=== PATIENT | male | born 2000 | race Caucasian/White ===

== ENCOUNTER 2024-04-02 08:01 | Outpatient (OUT) | payer BC, SELFPAY ==
--- NOTE | 2024-04-02 08:10 | ECG_ITS ---
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
[2024-04-02 08:54] LABS: Basophils Absolute Auto 0.1 10^3/uL (0.0-0.1); Basophils Percent Auto 1.4 % (0.2-2.0); Eosinophils Absolute Auto 0.2 10^3/uL (0.0-0.7); Eosinophils Percent Auto 2.7 % (0.9-7.0); Hematocrit 42.2 % (42.0-54.0); Hemoglobin 14.4 g/dL (14.0-18.0); Lymphocytes Absolute Auto 2.1 10^3/uL (1.2-3.8); Lymphocytes Percent Auto 31.9 % (20.5-60.0); Mean Corpuscular HGB Conc 34.1 g/dL (29.9-35.2); Mean Corpuscular Hemoglobin 28.6 pg (25.9-34.0); Mean Corpuscular Volume 83.7 fL (80.0-94.0); Mean Platelet Volume 9.5 fL (9.5-13.5); Monocytes Absolute Auto 0.7 10^3/uL (0.3-0.8); Monocytes Percent Auto 10.3 % (1.7-12.0); Neutrophils Absolute Auto 3.6 10^3/uL (1.4-6.5); Neutrophils Percent Auto 53.7 % (43.0-75.0); Platelet Count 329 10^3/uL (150-450); Red Blood Count 5.04 10^6/uL (4.70-6.10); Red Cell Distribution Width 13.1 % (11.0-15.0); White Blood Count 6.6 10^3/uL (4.0-11.0)
[2024-04-02 09:12] LABS: INR 1.14; Prothrombin Time 11.9 sec (9.0-11.6)
== END 2024-04-02 08:02 | disposition home or self-care (01) ==
LOC: PST 08:05
PROVIDERS: PCP Family Medicine; Visit Provider Otolaryngology
DX: Z01.810 Encounter for preprocedural cardiovascular examination (principal); Z01.812 Encounter for preprocedural laboratory examination; R04.0 Epistaxis
CPT/HCPCS: 85025; 85610; 85730; 93005

== ENCOUNTER 2024-04-13 08:41 | Day surgery (SDC) | payer BC, SELFPAY ==
[2024-04-02 08:38] VITALS: BP 128/86; PULSE 79; TEMP 36.5; O2SAT 96; BMI 23.7
[2024-04-13] VITALS (13 sets, daily range): BP systolic 94–146; BP diastolic 61–79; PULSE 65–104; TEMP 36.4–36.6; O2SAT 99–100
--- OUTSIDE RECORDS SUMMARY | 2024-04-13 08:55 | XMS_ITS | CCD ---
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 Name Role Phone MICHELLE, DR LIBRADO Markham Admitting Unavailable MICHELLE, DR LIBRADO Markham Attending Unavailable MICHELLE, DR LIBRADO Markham Consulting Unavailable MICHELLE, DR LIBRADO Markham Admitting Unavailable MICHELLE, DR LIBRADO Markham Attending Unavailable MICHELLE, DR LIBRADO Markham Admitting Unavailable CHARMAINE, DR MIGUEL Arellano Consulting Unavailable MICHELLE, DR LIBRADO Markham Attending Unavailable MICHELLE, DR LIBRADO Markham Consulting Unavailable JAMIE QUINN Primary Care Unavailable TUYET, JAMIE Referring Unavailable DENA SALAZAR Admitting Unavailable DENA SALAZAR Attending Unavailable Jamie Quinn DO Primary Care Provider RICKY STILES Attending Unavailable JAMIE QUINN Referring Unavailable TUYET, JAMIE Beck Primary Care Unavailable RICKY STILES Attending Unavailable TUYET, JAMIE Beck Referring Unavailable TUYET, JAMIE Beck Primary Care Unavailable AIDAN BECK Attending Unavailable Problems Active Problems Problem Classification Problem Date Documented Date Episodic/Chronic Anxiety disorders (1 source) Generalized anxiety disorder; Translations: [Generalized anxiety disorder] Onset: 11-04-2018 11-04-2018 Chronic Attention-deficit, conduct, and disruptive behavior disorders (1 source) Attention deficit hyperactivity disorder, combined type; Translations: [Attention-deficit hyperactivity disorder, combined type] Onset: 07-15-2017 07-15-2017 Chronic Attention-deficit, conduct, and disruptive behavior disorders (1 source) Oppositional defiant disorder; Translations: [Oppositional defiant disorder] Onset: 07-15-2017 07-15-2017 Chronic Cardiac dysrhythmias (1 source) Postural orthostatic tachycardia syndrome ; Translations: [POTS (postural orthostatic tachycardia syndrome)] Onset: 08-12-2022 08-12-2022 Chronic Mycoses (1 source) Tinea corporis; Translations: [Tinea corporis] Onset: 03-17-2024 Episodic Nonspecific chest pain (4 sources) Chest pain, unspecified; Translations: [CHEST PAIN UNSPECIFIED] Onset: 01-11-2022 Episodic Other ear and sense organ disorders (1 source) Bilateral hearing loss; Translations: [Impacted cerumen, bilateral] 01-14-2024 Episodic Other upper respiratory disease (1 source) Epistaxis; Translations: [Epistaxis] Onset: 03-17-2024 Episodic Residual codes; unclassified (1 source) Insomnia; Translations: [Other insomnia] Onset: 11-04-2018 11-04-2018 Chronic Unclassified (1 source) Low back pain, unspecified; Translations: [Low back pain, unspecified] Onset: 03-17-2024 Unclassified (1 source) Nose Bleed Onset: 03-17-2024 Unclassified (1 source) Ear Fullness Onset: 01-14-2024 Past or Other Problems Problem Classification Problem Date Documented Da te Episodic/Chronic Mood disorders (1 source) Mood disorders Onset: 01-14-2024 01-14-2024 Results Test Name Value Interpretation Reference Range Facility $ Ear cerumen removalon 12-19 RADHA Carcamo 01/14/2024 4:20 PM $ Ear cerumen removal Date/Time: 01/14/2024 4:13 PM Performed by: RADHA Carcamo Authorized by: RADHA Carcamo Local anesthetic: None Location details: Bilateral ears Procedure type: irrigation only Patient sedated: No Patient tolerance: Patient tolerated the procedure well with no immediate complications Incomplete removal of wax to right TM, most of it was removed but hearing was not restored to right. He is to use Debrox X 1 wk and if hearing is not restored he is to return to office for another irrigation of right. MANUALLY TRANSCRIBED RESULTS Section 101 System CATECHOLAMINES PLASMA [id number] n 04-26-2022 DOPAMINE <20 Normal 0-20 [facility] EPINEPHERINE 65 pg/mL Normal 10-200 [facility] [place] INTERPRETATION See Note Normal [facility] Comment on above: Result Comment: INTE RPRETIVE INFORMATION: Catecholamines Panel, Plasma Small increases in catecholamines (less than 2 times the upper reference limit) usually are the result of physiological stimuli, drugs, or improper specimen collection. Significant elevation of one or more catecholamines (2 or more times the upper reference limit) is associated with an increased probability of a neuroendocrine tumor. Measurement of plasma or urine fractionated metanephrines provides better diagnostic sensitivity than measurement of catecholamines. Higher catecholamine concentrations are observed in specimens collected from upright or standing adults. Epinephrine may be increased by approximately 20 percent; norepinephrine up to 700 pg/mL; dopamine, unchanged. Performed By: [facility] [address] [place] [address] Incident Commander: Echo Antoine MD NOR-EPINEPHERINE 421 pg/mL Normal 80-520 [facility] DOPAMINE <20 Normal 0-20 [facility] EPINEPHERINE 29 pg/mL Normal 10-200 [facility] [place] INTERPRETATION See Note Normal [facility] Comment on above: Result Comment: INTE RPRETIVE INFORMATION: Catecholamines Panel, Plasma Small increases in catecholamines (less than 2 times the upper reference limit) usually are the result of physiological stimuli, drugs, or improper specimen collection. Significant elevation of one or more catecholamines (2 or more times the upper reference limit) is associated with an increased probability of a neuroendocrine tumor. Measurement of plasma or urine fractionated metanephrines provides better diagnostic sensitivity than measurement of catecholamines. Higher catecholamine concentrations are observed in specimens collected from upright or standing adults. Epinephrine may be increased by approximately 20 percent; norepinephrine up to 700 pg/mL; dopamine, unchanged. Performed By: [facility] [address] [place] [address] Incident Commander: Echo Antoine MD NOR-EPINEPHERINE 206 pg/mL Normal 80-520 [facility] CORTISOLon 04-26-2022 CORTISOL 10.8 mcg/dL Normal [facility] Comment on above: Result Comment: Refe rence Range: AM 6.0-23.0 mcg/dL PM 0.0-9.0 mcg/dL Performed By: #### 3 0209, [id number] #### [facility] [address] METANEPHRINES, PLASMA [id number] n 06-10-[address] See Note Normal [facility] Comment on above: Result Comment: INTE RPRETIVE INFORMATION: Metanephrines, Plasma (Free) This test is useful in the detection of pheochromocytoma, a rare neuroendocrine tumor. The majority of patients with pheochromocytoma have a plasma normetanephrine concentration in excess of 2.2 nmol/L and/or a metanephrine concentration in excess of 1.1 nmol/L. Increased concentrations of these analytes serve as confirmation for diagnosis. Patients with essential hypertension and plasma concentrations of normetanephrine below 0.9 nmol/L and a metanephrine concentration below 0.5 nmol/L, can be excluded from further testing. If clinical suspicion remains, repeat testing or testing for metanephrines in a 24-hr. urine specimen should be considered. This test was developed and its performance characteristics determined by [facility]. It has not been cleared or approved by the [place] Food and Drug Administration. This test was performed in a CLIA certified laboratory and is intended for clinical purposes. Performed By: [facility] [address] [place] [address] Incident Commander: Echo Antoine MD METANEPHRINE PLASMA 0.35 nmol/L Normal 0.00-0.49 [facility] NORMETANEPHRINE PLASMA 0.55 nmol/L Normal 0.00-0.89 [facility] INTERP METANEPH PL See Note Normal [facility] Comment on above: Result Comment: INTE RPRETIVE INFORMATION: Metanephrines, Plasma (Free) This test is useful in the detection of pheochromocytoma, a rare neuroendocrine tumor. The majority of patients with pheochromocytoma have a plasma normetanephrine concentration in excess of 2.2 nmol/L and/or a metanephrine concentration in excess of 1.1 nmol/L. Increased concentrations of these analytes serve as confirmation for diagnosis. Patients with essential hypertension and plasma concentrations of normetanephrine below 0.9 nmol/L and a metanephrine concentration below 0.5 nmol/L, can be excluded from further testing. If clinical suspicion remains, repeat testing or testing for metanephrines in a 24-hr. urine specimen should be considered. This test was developed and its performance characteristics determined by [facility]. It has not been cleared or approved by the [place] Food and Drug Administration. This test was performed in a CLIA certified laboratory and is intended for clinical purposes. Performed By: [facility] [address] [place] [address] Incident Commander: Echo Antoine MD METANEPHRINE PLASMA 0.22 nmol/L Normal 0.00-0.49 [facility] NORMETANEPHRINE PLASMA 0.49 nmol/L Normal 0.00-0.89 [facility] TSH3on 04-26-2022 TSH 3RD GENERATION 1.15 uIU/mL Normal 0.34-5.60 [facility] Comment on above: Performed By: #### 3 0209, [id number] #### [facility] [address] BASIC METABOLIC PANELon 12-19 BUN/CREATININE RATIO NOT APPLICABLE Normal - [facility] Comment on above: Order Comment: FASTI NG:YES FASTING: YES Performed By: #### 1 0165 #### [facility] [address], [address] [place] [address] Electrical Machinist: Derrell Infante MD Calcium [Mass/Vol] 10.0 mg/dL Normal 8.9-10.4 [facility] Comment on above: Order Comment: FASTI NG:YES FASTING: YES Performed By: #### 1 0165 #### [facility] [address], [address] [place] [address] Electrical Machinist: Derrell Infante MD Chloride [Moles/Vol] 105 mmol/L Normal 98-110 [facility] Comment on above: Order Comment: FASTI NG:YES FASTING: YES Performed By: #### 1 0165 #### [facility] [address], [address] [place] [address] Electrical Machinist: Derrell Infante MD CO2 [Moles/Vol] 31 mmol/L Normal 20-32 [facility] Comment on above: Order Comment: FASTI NG:YES FASTING: YES Performed By: #### 1 0165 #### [facility] [place] [address] Electrical Machinist: Derrell Infante MD Creatinine [Mass/Vol] 1.03 mg/dL Normal 0.60-1.26 [facility] Comment on above: Order Comment: FASTI NG:YES FASTING: YES Performed By: #### 1 0165 #### [facility] [place] [address] Electrical Machinist: Derrell Infante MD eGFR NON-AFR. MONTSERRATIAN 105 mL/min/1.73m2 Normal > OR = 60 [facility] Comment on above: Order Comment: FASTI NG:YES FASTING: YES Performed By: #### 1 0165 #### [facility] [place] [address] Electrical Machinist: Derrell Infante MD GFR/1.73 sq M.predicted among blacks MDRD (S/P/Bld) [Vol rate/Area] 121 mL/min/{1.73_m2} Normal > OR = 60 [facility] Comment on above: Order Comment: FASTI NG:YES FASTING: YES Performed By: #### 1 0165 #### [facility] [place] [address] Electrical Machinist: Derrell Infante MD Glucose [Mass/Vol] 95 mg/dL Normal 65-99 [facility] Comment on above: Order Comment: FASTI NG:YES FASTING: YES Result Comment: Fasting reference interval Performed By: #### 1 0165 #### [facility] [place] [address] Electrical Machinist: Derrell Infante MD Potassium [Moles/Vol] 4.2 mmol/L Normal 3.8-5.1 [facility] Comment on above: Order Comment: FASTI NG:YES FASTING: YES Performed By: #### 1 0165 #### [facility] [place] [address] Electrical Machinist: Derrell Infante MD Sodium [Moles/Vol] 141 mmol/L Normal 135-146 [facility] Comment on above: Order Comment: FASTI NG:YES FASTING: YES Performed By: #### 1 0165 #### [facility] [address], [address] [place] [address] Electrical Machinist: Derrell Infante MD Urea nitrogen [Mass/Vol] 16 mg/dL Normal 7-20 [facility] Comment on above: Order Comment: FASTI NG:YES FASTING: YES Performed By: #### 1 0165 #### [facility] [address], [address] [place] [address] Electrical Machinist: Derrell Infante MD ECHOCARDIO M/2D COMPLETEon 0 01-11-2022 ECHOCARDIO M/2D COMPLETE Patient: MICHAEL ATKINS Exam Date: 01/11/2022 : 2000 Gender:M Ordering : DR LIBRADO MARTINEZ Admission #: [id number] Family : Order #: [id number] CLICK HERE TO VIEW EXAM ECHOCARDIOGRAM REPORT PROCEDURE: CARDIO PULMONARY ECHOCARDIO M/2D COMP INDICATIONS: Chest pain COMPARISON: None. DESCRIPTION: COMPLETE ECHOCARDIOGRAM Real-time transthoracic echocardiography with 2D, M-mode, spectral and color flow Doppler performed. QUALITY: Technical quality was good. LEFT VENTRICLE: Normal chamber size. Normal left ventricular wall thickness. No regional wall motion abnormalities. LV EF: Normal left ventricular ejection fraction, (>55%). DIASTOLIC: Normal diastolic function. ATRIAL SEPTUM: Visually appears intact. LEFT ATRIUM: Normal chamber size. RIGHT ATRIUM: Normal chamber size. A prominent Eustachian valve (normal variant) is seen. RIGHT VENTRICLE: Normal chamber size. Normal right ventricular systolic function. TRICUSPID VALVE: Normal mobility and thickness. No stenosis with trivial regurgitation. No evidence of pulmonary hypertension. MITRAL VALVE: Normal mobility and thickness. No evidence of mitral valve stenosis. There is no mitral annular calcification. Trivial mitral regurgitation. AORTIC VALVE: Normal trileaflet appearance. No visible sclerosis. Normal leaflet mobility. No evidence of aortic valve stenosis. No aortic regurgitation. AORTIC ROOT: Normal diameter and appearance. Ascending aorta and aortic arch are normal in size. PULMONIC VALVE: Normal thickness and mobility. No stenosis. No regurgitation. PERICARDIUM: No evidence of pericardial effusion. IVC: Collapses with inspirations. IVC is normal in size. CONCLUSION: Global left ventricular systolic function is normal; visually estimated ejection fraction is 55 to 60%. No significant wall motion abnormalities. Normal diastolic function. The right ventricle is normal in size and systolic function. No significant valvular abnormalities. Adult Echocardiography Procedure Report Left Ventricle LVEDD (3.7 - 5.6 cm): 4.40 cm LVESD (2.2 - 4.0 cm): 3.18 cm LVIVS thickness (0.6 - 1.2 cm): 9.15 mm LVPW thickness (0.5 - 1.0 cm): 8.90 mm e': 14.30 cm/s E - e': 3.90 LVOT Area (cm2): 4.15 cm2 LVOT Diameter 2.30 cm Left Atrium LA Volume Index (2D A2C): 23.60 ml/m2 Left Atrium Systolic Dimension: 2.50 cm Left Atrium Systolic Area(A2C): 15.90 cm2 Left Atrium Systolic Area(A4C): 21.40 cm2 Left Atrium Systolic Volume(A2C): 25249 mm3 Left Atrium Systolic Volume(A4C): 81678 mm3 Mitral Valve MV E to A Ratio: 1.60 Mitral Valve A-Wave Peak Velocity: 35.50 cm/s Mitral Valve E-Wave Peak Velocity: 56.30 cm/s Deceleration Time: 298 ms Right Ventricle Aorta AO Root Diam: 3.00 cm Aortic Valve AoV Area (Peak Justin): 3.86 cm2 Peak Velocity(Antegrade Flow): 115.00 cm/s Peak Gradient(Antegrade Flow): 5 mm[Hg] Tricuspid Valve Pulmonic Valve Peak Velocity: 108.00 cm/s Peak Gradient: 5 mm[Hg] Right Atrium Dictated by: Anup Ramírez M.D. on 01/11/2022 at 16:11 Approved by: Anup Ramírez M.D. on 01/11/2022 at 16:14 Normal [facility] CBC (INCLUDES DIFF/PLT)on Basophils (Bld) [#/Vol] 0.068 10*3/uL Normal 0-200 [facility] Comment on above: Performed By: #### 8 09, 6890, 66178 #### [facility] [address], [address] [place] [id number] Electrical Machinist: Derrell Infante MD Basophils/100 WBC (Bld) 0.9 % Normal [facility] Comment on above: Performed By: #### 8 , 63, 81153 #### [facility] [place] [address] Electrical Machinist: Derrell Infante MD Eosinophils (Bld) [#/Vol] 0.19 10*3/uL Normal 15-500 [facility] Comment on above: Performed By: #### 8 , 63, 76517 #### [facility] [place] [address] Electrical Machinist: Derrell Infante MD Eosinophils/100 WBC (Bld) 2.5 % Normal [facility] Comment on above: Performed By: #### 8 , 63, 28414 #### [facility] [place] [address] Electrical Machinist: Derrlel Infante MD Erythrocyte distribution width (RBC) [Ratio] 13.8 % Normal 11.0-15.0 [facility] Comment on above: Performed By: #### 8 , 63, 34008 #### [facility] [place] [address] Electrical Machinist: Derrell Infante MD Hematocrit (Bld) [Volume fraction] 42.6 % Normal 38.5-50.0 [facility] Comment on above: Performed By: #### 8 , 63, 53863 #### [facility] [place] [address] Electrical Machinist: Derrell Infante MD Hemoglobin (Bld) [Mass/Vol] 14.4 g/dL Normal 13.2-17.1 [facility] Comment on above: Performed By: #### 8 , 63, 12039 #### [facility] [place] [address] Electrical Machinist: Derrell Infante MD Lymphocytes (Bld) [#/Vol] 2.531 10*3/uL Normal 850-3900 [facility] Comment on above: Performed By: #### 8 , 63, 78913 #### [facility] [place] [address] Electrical Machinist: Derrell Infante MD Lymphocytes/100 WBC (Bld) 33.3 % Normal [facility] Comment on above: Performed By: #### 8 , 63, 10546 #### [facility] [place] [address] Electrical Machinist: Derrell Infante MD MCH (RBC) [Entitic mass] 29.1 pg Normal 27.0-33.0 [facility] Comment on above: Performed By: #### 8 , 63, 84618 #### [facility] [place] [address] Electrical Machinist: Derrell Infante MD MCHC (RBC) [Mass/Vol] 33.8 g/dL Normal 32.0-36.0 [facility] Comment on above: Performed By: #### 8 , 63, 74465 #### [facility] [place] [address] Electrical Machinist: Derrell Infante MD MCV (RBC) [Entitic vol] 86.1 fL Normal 80.0-100.0 [facility] Comment on above: Performed By: #### 8 , 63, 65843 #### [facility] [place] [address] Electrical Machinist: Derrell Infante MD Monocytes (Bld) [#/Vol] 1.018 10*3/uL High 200-950 [facility] Comment on above: Performed By: #### 8 , 6399, 21528 #### [facility] [place] [address] Electrical Machinist: Derrell Infante MD Monocytes/100 WBC (Bld) 13.4 % Normal [facility] Comment on above: Performed By: #### 8 , 63, 20433 #### [facility] of [address], [address] [place] [address] Electrical Machinist: Derrell Infante MD Neutrophils (Bld) [#/Vol] 3.792 10*3/uL Normal 1462-9743 [facility] Comment on above: Performed By: #### 8 09, 6399, 56814 #### [facility] of [address], [address] [place] [address] Electrical Machinist: Derrell Infante MD Neutrophils/100 WBC (Bld) 49.9 % Normal [facility] Comment on above: Performed By: #### 8 09, 6399, 33743 #### [facility] [place] [address] Electrical Machinist: Derrell Infante MD Platelet mean volume (Bld) [Entitic vol] 10.5 fL Normal 7.5-12.5 [facility] Comment on above: Performed By: #### 8 , 63, 88243 #### [facility] of [address], [address] [place] [address] Electrical Machinist: Derrell Infante MD Platelets (Bld) [#/Vol] 287 10*3/uL Normal 140-400 [facility] Comment on above: Performed By: #### 8 09, 6399, 34685 #### [facility] [place] [address] Electrical Machinist: Derrell Infante MD RBC (Bld) [#/Vol] 4.95 10*6/uL Normal 4.20-5.80 [facility] Comment on above: Performed By: #### 8 09, 6399, 55425 #### [facility] of [address], [address] [place] [address] Electrical Machinist: Derrell Infante MD WBC (Bld) [#/Vol] 7.6 10*3/uL Normal 3.8-10.8 [facility] Comment on above: Performed By: #### 8 09, 6399, 45610 #### [facility] of [address], [address] [place] [address] Electrical Machinist: Derrell Infante MD COMPREHENSIVE METABOLIC PANE [facility] 12-29-2021 Albumin [Mass/Vol] 4.9 g/dL Normal 3.6-5.1 [facility] Comment on above: Order Comment: FASTI NG:YES FASTING: YES Performed By: #### 8 09, 6399, 25280 #### [facility] [address], [address] [place] [address] Electrical Machinist: Derrell Infante MD Albumin/Globulin [Mass ratio] 2.7 {ratio} High 1.0-2.5 [facility] Comment on above: Order Comment: FASTI NG:YES FASTING: YES Performed By: #### 8 09, 6399, 04709 #### [facility] [place] [address] Electrical Machinist: Derrell Infante MD ALP [Catalytic activity/Vol] 44 U/L Low 46-169 [facility] Comment on above: Order Comment: FASTI NG:YES FASTING: YES Performed By: #### 8 09, 6399, 27836 #### [facility] [place] [address] Electrical Machinist: Derrell Infante MD ALT [Catalytic activity/Vol] 10 U/L Normal 8-46 [facility] Comment on above: Order Comment: FASTI NG:YES FASTING: YES Performed By: #### 8 09, 6399, 85573 #### [facility] [place] [address] Electrical Machinist: Derrell Infante MD AST [Catalytic activity/Vol] 14 U/L Normal 12-32 [facility] Comment on above: Order Comment: FASTI NG:YES FASTING: YES Performed By: #### 8 09, 6399, 03403 #### [facility] [place] [address] Electrical Machinist: Derrell Infante MD Bilirubin [Mass/Vol] 0.5 mg/dL Normal 0.2-1.1 [facility] Comment on above: Order Comment: FASTI NG:YES FASTING: YES Performed By: #### 8 09, 6399, 70186 #### [facility] [place] [address] Electrical Machinist: Derrell Infante MD BUN/CREATININE RATIO NOT APPLICABLE Normal 6-22 [facility] Comment on above: Order Comment: FASTI NG:YES FASTING: YES Performed By: #### 8 09, 6399, 78758 #### [facility] [place] [address] Electrical Machinist: Derrell Infante MD Calcium [Mass/Vol] 9.9 mg/dL Normal 8.9-10.4 [facility] Comment on above: Order Comment: FASTI NG:YES FASTING: YES Performed By: #### 8 09, 6399, 42269 #### [facility] [place] [address] Electrical Machinist: Derrell Infante MD Chloride [Moles/Vol] 106 mmol/L Normal 98-110 [facility] Comment on above: Order Comment: FASTI NG:YES FASTING: YES Performed By: #### 8 09, 6399, 57905 #### [facility] [place] [address] Electrical Machinist: Derrell Infante MD CO2 [Moles/Vol] 27 mmol/L Normal 20-32 [facility] Comment on above: Order Comment: FASTI NG:YES FASTING: YES Performed By: #### 8 , 6399, 32012 #### [facility] [place] [address] Electrical Machinist: Derrell Infante MD Creatinine [Mass/Vol] 0.89 mg/dL Normal 0.60-1.26 [facility] Comment on above: Order Comment: FASTI NG:YES FASTING: YES Performed By: #### 8 09, 6399, 32289 #### [facility] [place] [address] Electrical Machinist: Derrell Infante MD eGFR NON-AFR. MONTSERRATIAN 124 mL/min/1.73m2 Normal > OR = 60 [facility] Comment on above: Order Comment: FASTI NG:YES FASTING: YES Performed By: #### 8 , 63, 91150 #### [facility] [address], [address] [place] [address] Electrical Machinist: Derrell Infante MD GFR/1.73 sq M.predicted among blacks MDRD (S/P/Bld) [Vol rate/Area] 144 mL/min/{1.73_m2} Normal > OR = 60 [facility] Comment on above: Order Comment: FASTI NG:YES FASTING: YES Performed By: #### 8 , 63, 56438 #### [facility] [address], [address] [place] [address] Electrical Machinist: Derrell Infante MD Globulin (S) [Mass/Vol] 1.8 g/dL Low 2.1-3.5 [facility] Comment on above: Order Comment: FASTI NG:YES FASTING: YES Performed By: #### 8 , 63, 42090 #### [facility] [address], [address] [place] [address] Electrical Machinist: Derrell Infante MD Glucose [Mass/Vol] 104 mg/dL High 65-99 [facility] Comment on above: Order Comment: FASTI NG:YES FASTING: YES Result Comment: Fasting reference interval For someone without known diabetes, a glucose value between 100 and 125 mg/dL is consistent with prediabetes and should be confirmed with a follow-up test. Performed By: #### 8 , 63, 81890 #### [facility] [address], [address] [place] [address] Electrical Machinist: Derrell Infante MD Potassium [Moles/Vol] 3.7 mmol/L Low 3.8-5.1 [facility] Comment on above: Order Comment: FASTI NG:YES FASTING: YES Performed By: #### 8 , 63, 62344 #### [facility] [address], [address] [place] [address] Electrical Machinist: Derrell Infante MD Protein [Mass/Vol] 6.7 g/dL Normal 6.3-8.2 [facility] Comment on above: Order Comment: FASTI NG:YES FASTING: YES Performed By: #### 8 09, [id number], [id number] #### [facility] [address], [address] [place] [address] Electrical Machinist: Derrell Infante MD Sodium [Moles/Vol] 141 mmol/L Normal 135-146 [facility] Comment on above: Order Comment: FASTI NG:YES FASTING: YES Performed By: #### 8 09, [id number], [id number] #### [facility] [place] [address] Electrical Machinist: Derrell Infante MD Urea nitrogen [Mass/Vol] 9 mg/dL Normal 7-20 [facility] Comment on above: Order Comment: FASTI NG:YES FASTING: YES Performed By: #### 8 09, [id number], [id number] #### [facility] [place] [address] Electrical Machinist: Derrell Infante MD SED RATE BY MODIFIED WESTERG RENon 12-29-2021 SED RATE BY MODIFIED WESTERGREN 2 mm/h Normal < OR = 15 [facility] Comment on above: Performed By: #### 8 09, [id number], [id number] #### [facility] [place] [address] Electrical Machinist: Derrell Infante MD XR CHEST 2 Von 12-28-2021 XR CHEST 2 V EXAMINATION: XR CHES T 2 V HISTORY: Chest pain COMPARISON: No relevant comparison available. TECHNIQUE: PA and lateral FINDINGS: LUNGS: No significant pulmonary parenchymal abnormalities. VASCULATURE: No increased pulmonary vasculature. PLEURA: No pneumothorax, effusion, or pleural thickening. CARDIAC: No cardiomegaly or cardiac silhouette abnormality. MEDIASTINUM: No visible mass or adenopathy. BONES: No fracture or visible bone lesion. OTHER: Negative. IMPRESSION: Normal examination. Electronically authenticated by: MIGUEL MONTANO Date: 2021-12-28 10:41 Normal [facility] Vital Signs Date Time Vital Sign Value Performing Clinician Facility 01-14-2024 15:11-0500 Body height 190.5 cm Ricky Stiles MEDICAL UNDERWRITER-LICENSED WEIGHER Work Phone: [facility] 01-14-2024 15:11-0500 Body mass index (BMI) [Ratio] 26.6 kg/m2 Ricky Stiles MEDICAL UNDERWRITER-LICENSED WEIGHER Work Phone: [facility] 01-14-2024 15:11-0500 Body temperature 99.39 [degF] Ricky Stiles MEDICAL UNDERWRITER-LICENSED WEIGHER Work Phone: [facility] 01-14-2024 15:11-0500 [facility] MED[facility] UNDERWRITER-LICENSED WEIGHER Work Phone: [facility] 01-14-2024 15:11-0500 Diastolic blood pressure 70 mm[Hg] [facility] MEDICAL UNDERWRITER-LICENSED WEIGHER Work Phone: [facility] 01-14-2024 15:11-0500 Heart rate 75 /min Rickyaye Stiles MEDICAL UNDERWRITER-LICENSED WEIGHER Work Phone: [facility] 01-14-2024 15:11-0500 SaO2% (BldA) [Mass fraction] 99 % Ricky Stiles MEDICAL UNDERWRITER-LICENSED WEIGHER Work Phone: [facility] 01-14-2024 15:11-0500 Systolic blood pressure 110 mm[Hg] [facility] MEDICAL UNDERWRITER-LICENSED WEIGHER Work Phone: [facility] Encounters Encounter Date Encounter Type Care Provider Facility Start: 04-01-2024 End: 04-01-2024 ambulatory AIDAN BECK Not Available Start: 03-17-2024 End: 03-17-2024 ambulatory [facility] Start: 01-14-2024 End: 01-14-2024 ambulatory [facility] Start: 01-14-2024 End: 01-14-2024 Office outpatient visit 15 minutes Rickyaye Stiles MEDICAL UNDERWRITER-LICENSED WEIGHER Work Phone: [facility] Comment on above: Hearing loss due to cerumen impaction, bilateral (Primary Dx) Start: 05-22-2022 End: 05-23-2022 ambulatory JAMIE TERRELLHERIBERTOPANKAJ Facility:[facility] Start: 01-11-2022 End: 01-12-[address] LIBRADO MARTINEZ Facility: Start: 12-28-2021 End: 12-29-[address] LIBRADO MARTINEZ Facility:[facility] Start: 07-03-[address] LIBRADO MARTINEZ Facility :[facility] Procedures Date Procedure Procedure Detail Performing Clinician Start: 01-14-2024 Removal impacted cer umen irrigation/lvg unilat Ricky Stiles MEDICAL UNDERWRITER-LICENSED WEIGHER Work Phone: Start: 01-14-2024 Adult depression screening assessment Ricky Stiles MEDICAL UNDERWRITER-LICENSED WEIGHER Work Phone: Plan of Treatment Date Care Activity Detail Author Start: 06-19-2025 DTaP,Tdap and Td Vaccines (7 - Td or Tdap) DTaP,Tdap and Td Vaccines (7 - Td or Tdap) [facility] Start: 01-14-2025 Adult BMI Screening Adult BMI Screen ing [facility] Start: 01-14-2025 Depression Screening Depression Scre ening [facility] Start: 01-14-2025 Tobacco Screening Tobacco Screening [facility] Start: 07-18-2023 Influenza vaccination Influenza Vacc ine [facility] Start: 2020 Adult BMI Follow Up Plan Adult BMI Follow Up Plan [facility] Payers Date Payer Category Payer Unknown [employer] P[employer]/TRUST [id number] 2021-Present [phone] [address] [place] [address] [id number] 2002 Unknown [id number] 2002 Unknown [id number] 2002 Unknown [id number] 2002 Unknown [id number] 2002 Unknown [id number] 1975 Unknown [id number] 1975 Unknown [id number] 1959 Self-pay 1959 Unknown [id number] Social History Date Type Detail Facility Start: 08-12-2022 Tobacco smoking stat [facility] Never smoked tobacco [facility] Start: 08-12-2022 Tobacco use and exposure Smokeless tobacco non-user [facility] Start: 01-14-2024 Alcohol intake Lifetime non-d bright (finding) [facility] Start: 12-27-2020 End: 01-14-2024 History of Social function [facility] Start: 12-27-2020 End: 01-14-2024 Tobacco use panel [facility] Adolescent depressio n screening assessment 0 [facility] Start: 2000 Sex Assigned At Male P [facility] Start: 08-12-2022 Gender identity Identifies as male gender (finding) [facility] Start: 08-12-2022 Sexual orientation Heterosexual (fin ding) [facility] History of Present illness Narrative 01-14-2024 [facility] 01/14/2024 3:00 PM ESTRicky Stiles [facility] 01/14/2024 3:00 PM EST Note Date & Type Note Facility 01-14-2024 History of Presen t illness Narr[place] [address] Patient: Michael Atkins Date of : 2000 Encounter Date: 01/14/2024 History of Present Illness: The patient is a 23 y.o. male, an established patient, and is here for Chief Complaint Patient presents with Ear Fullness Right ear x 3 months . HPI Patient has loss of hearing on the right side, he hears some muffled sounds. He has had intermittent hearing loss bilaterally since April. At work today he lost his hearing on the right and has not been restored. His ear does not hurt nor has he had any drainage and he did try to do ear handling 2 days ago and he got a lot of wax out of the right side. Earlier today he stuck a wet paper tall and his ear to try to get the wax out but he could not. 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 He does have exposure to loud instruments such as a buffer but his watch tells him when the decibels are becoming too high and it warrants him above 90. He has been to a few concerts and vegetables in his lifetime. Patient also states he has seasonal allergies often on an use Flonase when they get really bad. Problem List Items Addressed This Visit None Visit Diagnoses Hearing loss due to cerumen impaction, bilateral - Primary Relevant Orders $ Ear cerumen removal Past Medical, Family, and Social History Update: The following portions of the patient's history were reviewed and updated as appropriate: allergies, current medications, past family history, past medical history, past social history, past surgical history and problem list. Past Medical History: Diagnosis Date ADHD (attention deficit hyperactivity disorder) Allergic Allergic rhinitis Past Surgical History: Procedure Laterality Date TONSILLECTOMY 11/17/2009 No current outpatient medications on file. No current facility-administered medications for this visit. (All medications reviewed and updated by provider since last office visit or hospitalization) Allergies: No known drug allergies Tobacco History: Social History Tobacco Use Smoking Status Never Smokeless Tobacco Never (If patient a smoker, smoking cessation counseling offered) Social History: Social History Substance and Sexual Activity Alcohol Use Never Review of Systems: Review of Systems Constitutional: Negative for fever and unexpected weight change. HENT: Positive for congestion and hearing loss. Respiratory: Negative. Cardiovascular: Negative. Neurological: Negative. Psychiatric/Behavioral: Negative. Physical Exam: BP 110/70 (BP Site: Left Arm, BP Postition: Sitting) Pulse 75 Temp 37.4 C (99.4 F) (Tympanic) Ht 190.5 cm (6' 3 ) Wt 96.5 kg (212 lb 12.8 oz) SpO2 99% BMI 26.60 kg/m Physical Exam Vitals reviewed. Constitutional: Appearance: Normal appearance. HENT: Head: Normocephalic and atraumatic. Right Ear: There is impacted cerumen. Left Ear: Tympanic membrane, ear canal and external ear normal. There is impacted cerumen. Nose: Nose normal. Mouth/Throat: Mouth: Mucous membranes are moist. Eyes: Pupils: Pupils are equal, round, and reactive to light. Cardiovascular: Rate and Rhythm: Normal rate and regular rhythm. Heart sounds: Normal heart sounds. Pulmonary: Effort: Pulmonary effort is normal. Breath sounds: Normal breath sounds. Lymphadenopathy: Cervical: No cervical adenopathy. Skin: General: Skin is warm. Capillary Refill: Capillary refill takes less than 2 seconds. Neurological: General: No focal deficit present. Mental Status: He is alert and oriented to person, place, and time. Psychiatric: Mood and Affect: Mood normal. Behavior: Behavior normal. Assessment and Plan: Michael was seen today for ear fullness. Diagnoses and all orders for this visit: Hearing loss due to cerumen impaction, bilateral - $ Ear cerumen removal Follow-up: Wax completely removed from left ear canal. Unable to completely remove wax from right ear canal after multiple attempts. Patient's hearing was unfortunately not fully restored so he is to use Debrox for the next 1 week as per directions on procedure note. Return as needed in 1 week for ear irrigation. RADHA CARCAMO APRN-CNP 01/14/24 1620 Associated Order(s): $ Ear cerumen removal Post-Procedure Diagnose(s): Hearing loss due to cerumen impaction, bilateral $ Ear cerumen removal Date/Time: 01/14/2024 4:13 PM Performed by: RADHA Carcamo Authorized by: RADHA Carcamo Local anesthetic: None Location details: Bilateral ears Procedure type: irrigation only Patient sedated: No Patient tolerance: Patient tolerated the procedure well with no immediate complications Incomplete removal of wax to right TM, most of it was removed but hearing was not restored to right. He is to use Debrox X 1 wk and if hearing is not restored he is to return to office for another irrigation of right. RADHA Carcamo 01/14/24 1620 documented in this encounter [facility] Evaluation note Note Date & Type Note Facility Evaluation note Diagnosis Hearing loss due to cerumen impaction, bilateral- Primary documented in this encounter [facility] Instructions Note Date & Type Note Facility Instructions Not on filedocumented in this en counter [facility] Summary Purpose Family History No Family History Records FoundNo Family History Records FoundNo Family History Records FoundNo Family History Records FoundNo Family History Records Found Advance Directives No Advanced Directives Records FoundNo Advanced Directives Records FoundNo Advanced Directives Records FoundNo Advanced Directives Records FoundNo Advanced Directives Records Found Additional Source Comments (unrecognized sect ion and content) No Status Records FoundNo Status Records FoundNo Status Records FoundNo Status Records FoundNo Status Records Found INFORMATION SOURCE (unrecogn ized section and content) DATE CREATED AUTHOR 01/12/2022 [facility] DATE CREATED AUTHOR AUTHOR'S ORGANIZ ATION [facility]17/2022 [facility] DATE CREATED AUTHOR AUTHOR'S ORGANIZ ATION 05/27/2022 [facility] DATE CREATED AUTHOR AUTHOR'S ORGANIZ ATION 03/19/2024 [facility] DATE CREATED AUTHOR AUTHOR'S ORGANIZ ATION 04/04/2024 [facility] EPIC Reason for Visit (unrecogniz ed section and content) Reason Comments Ear Fullness Right ear x 3 months Care Teams (unrecognized sec tion and content) 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 This clinical summary was aggregated from multiple sources. Caution should be exercised in using it in the provision of clinical care. This summary normalizes information from multiple sources, and as a consequence, information in this document may materially change the coding, format and clinical context of patient data. In addition, data may be omitted in some cases. CLINICAL DECISIONS SHOULD BE BASED ON THE PRIMARY CLINICAL RECORDS. [facility]. provides no warranty or guarantee of the accuracy or completeness of information in this document.
[2024-04-13] MEDS: LACTATED RINGER'S SOLUTION 1,000 ML 50 ML IV (09:13)
--- NOTE | 2024-04-13 11:53 | OP_ITS ---
OPERATION DATE: 04/13/2024 PRIMARY CARE PHYSICIAN: Jamie Quinn D.O. SURGEON: Aarti Castro M.D. PREOPERATIVE DIAGNOSIS: Recurrent right epistaxis. POSTOPERATIVE DIAGNOSIS: Recurrent right epistaxis. PROCEDURE: Right nasal endoscopy and cautery. ANESTHESIA: General endotracheal. COMPLICATIONS: None. FINDINGS: Prominent right anterior septal veins. INDICATIONS: This 23-year-old presented with a history of recurrent right epistaxis and prominent anterior septal veins on examination. PROCEDURE: Patient identified in the holding area and taken back to the OR, where he was placed in the supine position. After induction of general anesthesia, the right nose was approached with a 30 degree nasal endoscope and, under endoscopic guidance, the prominent anterior septal veins were cauterized. Afrin soaked pledgets were then placed in each side of the nose, and after waiting adequate time for decongestion, the nose was re-examined with the nasal endoscope on each side. There were no other significant findings, other than a deviated nasal septum to the left, on the left hand side. The patient was then awakened and taken to the recovery room in good condition. CECIL
[2024-04-13] MEDS: OXYMETAZOLINE HCL 0.05% NASAL SPRAY 30 SPRAY NS (12:00)
[2024-04-13] MEDS: BACITRACIN OINTMENT 28.4 GM TUBE 1 APPLIC TOPICAL (12:00)
== END 2024-04-13 13:04 | disposition home or self-care (01) ==
PROVIDERS: PCP Family Medicine; Visit Provider Otolaryngology
PROC: (CPT 160; principal; 2024-04-13 09:50)
DX: R04.0 Epistaxis (principal)
CPT/HCPCS: 31238; 36415; J1094; J2704

== ENCOUNTER 2025-02-15 13:19 | Emergency (ER) | payer BC, SELFPAY ==
[2025-02-15 13:46] VITALS: BP 139/78; PULSE 74; TEMP 36.8; O2SAT 99; BMI 22.8
[2025-02-15 15:22] VITALS: BP 127/60; PULSE 77; O2SAT 100
--- NOTE | 2025-02-15 15:34 | ED.ABDPAIN1 ---
HPI - Abdominal Pain General Chief Complaint: Abdominal Pain Stated Complaint: BLOOD IN STOOL, ABDOMINAL PAIN Time Seen by Provider: 02/15/25 15:25 Source: patient Mode of arrival: walk-in History of Present Illness HPI narrative: Patient is a pleasant 24-year-old male who presents to the emergency department for abdominal pain and diarrhea for the last 4 weeks. Patient states in the last several days he has had dark red blood in his stool. He states he was diagnosed with IBS by his PCP. He has not had any testing, stool cultures or images performed. He was prescribed Bentyl and ciprofloxacin last week. He states he took 3 days of the Cipro but felt as though his symptoms were worse so he stopped taking it. He has had no fevers. He reports occasional dry heaving. He reports abdominal cramping in the umbilicus and suprapubic abdomen. No previous abdominal surgeries. Related Data Previous Rx's ?Medication ?Instructions ?Recorded hyoscyamine sulfate 0.125 mg 0.125 mg PO Q6H PRN abdominal pain 02/15/25 tablet (Levsin) #12 tabs ondansetron 4 mg disintegrating 4 mg PO Q6H PRN nausea and 02/15/25 tablet vomiting #12 tabs Allergies Allergy/AdvReac Type Severity Reaction Status Date / Time No Known Drug Allergies Allergy Verified 04/02/24 08:22 Review of Systems ROS Constitutional Denies: fever or chills Ears, nose, mouth, and throat Denies: throat pain or nasal congestion Respiratory Denies: shortness of breath or cough Gastrointestinal Reports: abdominal pain, nausea, diarrhea and blood in stool; Denies: vomiting Integumentary/Breast Denies: rash Neurological Denies: numbness in extremities or weakness in extremities Hematologic/Lymphatic Denies: easy bruising or easy bleeding [facility] Medical History (Updated 02/15/25 @ 17:12 by SEBASTIÁN Miller) Syncope ?R55 - Syncope and collapse (ICD-10) Chest pain ?R07.9 - Chest pain, unspecified (ICD-10) Anxiety ?F41.9 - Anxiety disorder, unspecified (ICD-10) Oppositional defiant disorder ?F91.3 - Oppositional defiant disorder (ICD-10) Insomnia ?G47.00 - Insomnia, unspecified (ICD-10) POTS (postural orthostatic tachycardia syndrome) ?G90.A - Postural orthostatic tachycardia syndrome [POTS] (ICD-10) Tinea corporis ?B35.4 - Tinea corporis (ICD-10) Back pain ?M54.9 - Dorsalgia, unspecified (ICD-10) Allergic rhinitis ?J30.9 - Allergic rhinitis, unspecified (ICD-10) ADHD ?F90.9 - Attention-deficit hyperactivity disorder, unspecified type (ICD-10) Epistaxis ?R04.0 - Epistaxis (ICD-10) Surgical History (Updated 04/02/24 @ 08:27 by Linda Schreiber NP) H/O wisdom tooth extraction ?K08.409 - Partial loss of teeth, unspecified cause, unspecified class (ICD-10) Hx of tonsillectomy ?Z90.89 - Acquired absence of other organs (ICD-10) Family History (Updated 04/02/24 @ 08:31 by Linda Schreiber NP) Other Family history of heart disease Family history of hypertension Family history of myocardial infarction Family history of skin cancer Social History Within the past year, how often did you have a drink containing alcohol: monthly or less Smoking status: Never smoker Non-prescribed substance use: denies use 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 Highest level of school completed/degree received: some college, no degree Little interest or pleasure in doing things: not at all Feeling down, depressed, or hopeless: not at all Exam Narrative Exam Narrative: Gen.: Awake, alert, in no distress Head: Normocephalic, atraumatic ENT: Moist mucous membranes Respiratory: No respiratory distress Gastrointestinal: Abdomen is soft, nondistended and mildly tender to palpation in the umbilicus with no guarding or rebound Extremities: Moves extremities equally Psych: Normal mood and affect Neuro: No focal neuro deficit Skin: Warm, dry, intact Constitutional Vital Signs, click to edit/add: Last Vital Signs Temp 98.3 F 02/15/25 13:46 Pulse 66 02/15/25 17:00 Resp 16 02/15/25 15:22 BP 130/84 02/15/25 17:00 Pulse Ox 100 02/15/25 15:22 O2 Del Method Room Air 02/15/25 13:46 Course Vital Signs Vital signs: Vital Signs Temperature 98.3 F 02/15/25 13:46 Pulse Rate 74 02/15/25 13:46 Respiratory Rate 18 02/15/25 13:46 Blood Pressure 139/78 02/15/25 13:46 Pulse Oximetry 99 02/15/25 13:46 Oxygen Delivery Method Room Air 02/15/25 13:46 Temperature 98.3 F 02/15/25 13:46 Pulse Rate 66 02/15/25 17:00 Respiratory Rate 16 02/15/25 15:22 Blood Pressure 130/84 02/15/25 17:00 Pulse Oximetry 100 02/15/25 15:22 Oxygen Delivery Method Room Air 02/15/25 13:46 MDM - Abdominal Pain MDM Narrative Medical decision making narrative: Patient medicated with IV fluids, Toradol and Zofran. Abdomen is soft and benign and vital signs are stable. He had no episodes of emesis or diarrhea in the ER. Laboratory studies reviewed and noted within normal limits, CT of the abdomen and pelvis with no evidence of acute process. Patient discharged with Levsin and Zofran to follow-up with GI and return to the ER if symptoms change or worsen. It was recommended he provide a stool specimen for stool culture. He is given a GI referral. SHARED APC VISIT, PHYSICIAN ATTESTATION: [id number] I performed a substantive part of the MDM during the patient?s E/M visit. I personally evaluated and examined the patient. I personally made or approved the documented management plan and acknowledge its risk of complications. Medical Records Attestation: I reviewed the patient's medical records. Lab Data Attestation: I reviewed the patient's lab results. Labs: Lab Results 02/15/25 Range/Units 16:00 WBC 7.8 (4.0-11.0) 10^3/uL RBC 5.07 (4.70-6.10) 10^6/uL Hgb 15.1 (14.0-18.0) g/dL Hct 43.0 (42.0-54.0) % MCV 84.8 (80.0-94.0) fL MCH 29.8 (25.9-34.0) pg MCHC 35.1 (29.9-35.2) g/dL RDW 13.2 (11.0-15.0) % Plt Count 285 (150-450) 10^3/uL MPV 10.0 (9.5-13.5) fL Neut % (Auto) 58.2 (43.0-75.0) % Lymph % (Auto) 29.5 (20.5-60.0) % [place] % (Auto) 9.2 (1.7-12.0) % Eos % (Auto) 1.8 (0.9-7.0) % Baso % (Auto) 1.0 (0.2-2.0) % Neut # (Auto) 4.6 (1.4-6.5) 10^3/uL Lymph # (Auto) 2.3 (1.2-3.8) 10^3/uL [place] # (Auto) 0.7 (0.3-0.8) 10^3/uL Eos # (Auto) 0.1 (0.0-0.7) 10^3/uL Baso # (Auto) 0.1 (0.0-0.1) 10^3/uL Abs Immat Gran (auto) 0.02 (0.00-0.03) 10^3/uL Imm/Tot Granulo (auto) 0.3 (0.0-0.5) % PT 11.7 H (9.0-11.6) sec INR 1.12 Sodium 145 (136-145) mmol/L Potassium 4.2 (3.5-5.1) mmol/L Chloride 107 (98-107) mmol/L Carbon Dioxide 29.6 (21.0-32.0) mmol/L Anion Gap 12.6 BUN 15.0 (7.0-18.0) mg/dL Creatinine 0.97 (0.70-1.30) mg/dL Est GFR ( Amer) >60 (>=60 mL/min/1.73m^2) Est GFR (Non-Af Amer) >60 (>=60 mL/min/1.73m^2) BUN/Creatinine Ratio 15.5 Glucose 96 (74-106) mg/dL Lactate 0.7 (0.4-2.0) mmol/L Calcium 9.2 (8.5-10.1) mg/dL Total Bilirubin 0.5 (0.2-1.0) mg/dL AST 15 (15-37) U/L ALT 14 L (16-63) U/L Alkaline Phosphatase 36 L (46-116) U/L Total Protein 7.3 (6.4-8.2) g/dL Albumin 4.5 (3.4-5.0) g/dL Globulin 2.8 g/dL Albumin/Globulin Ratio 1.6 Lipase 22.0 (16.0-77.0) U/L Imaging Data CT scan - abdomen: Attestation: I have reviewed the pertinent imaging results. Discharge Plan Discharge Chief Complaint: Abdominal Pain Clinical Impression: Abdominal pain, Diarrhea Patient Disposition: Home, Self-Care Time of Disposition Decision: 17:12 Condition: Good Prescriptions / Home Meds: New hyoscyamine sulfate [Levsin] 0.125 mg tablet 0.125 mg PO Q6H PRN (Reason: abdominal pain) Qty: 12 0RF ondansetron 4 mg tablet,disintegrating 4 mg PO Q6H PRN (Reason: nausea and vomiting) Qty: 12 0RF Print Language: Cameroonian Instructions: Acute Diarrhea (ED), Acute Abdominal Pain (ED) Referrals: RAVINDER XIE [Physician] - 1 week MARBIN BENZ [Primary Care Provider] - 1 week
[2025-02-15] MEDS: KETOROLAC TROMETHAMINE 30 MG/ML VIAL IVP (16:08)
[2025-02-15] MEDS: 0.9 % SODIUM CHLORIDE 1,000 ML 999 ML IV (16:09)
[2025-02-15] MEDS: ONDANSETRON PF 4 MG/2 ML VIAL IV (16:09)
[2025-02-15 16:20] LABS: Basophils Absolute Auto 0.1 10^3/uL (0.0-0.1); Eosinophils Absolute Auto 0.1 10^3/uL (0.0-0.7); Eosinophils Percent Auto 1.8 % (0.9-7.0); Hemoglobin 15.1 g/dL (14.0-18.0); Immature Granulocytes Abs Auto 0.02 10^3/uL (0.00-0.03); Immature Granulocytes Pct Auto 0.3 % (0.0-0.5); Lymphocytes Absolute Auto 2.3 10^3/uL (1.2-3.8); Lymphocytes Percent Auto 29.5 % (20.5-60.0); Mean Corpuscular HGB Conc 35.1 g/dL (29.9-35.2); Mean Corpuscular Hemoglobin 29.8 pg (25.9-34.0); Mean Corpuscular Volume 84.8 fL (80.0-94.0); Monocytes Absolute Auto 0.7 10^3/uL (0.3-0.8); Monocytes Percent Auto 9.2 % (1.7-12.0); Neutrophils Absolute Auto 4.6 10^3/uL (1.4-6.5); Neutrophils Percent Auto 58.2 % (43.0-75.0); Platelet Count 285 10^3/uL (150-450); Red Blood Count 5.07 10^6/uL (4.70-6.10); Red Cell Distribution Width 13.2 % (11.0-15.0); White Blood Count 7.8 10^3/uL (4.0-11.0)
[2025-02-15 16:32] LABS: INR 1.12; Prothrombin Time 11.7 sec (9.0-11.6)
[2025-02-15 16:37] LABS: Alanine Aminotransferase 14 U/L (16-63); Albumin Globulin Ratio 1.6; Albumin Level 4.5 g/dL (3.4-5.0); Alkaline Phosphatase 36 U/L (46-116); Anion Gap 12.6; Aspartate Amino Transferase 15 U/L (15-37); BUN Creatinine Ratio 15.5; Bilirubin Total 0.5 mg/dL (0.2-1.0); Calcium 9.2 mg/dL (8.5-10.1); Carbon Dioxide 29.6 mmol/L (21.0-32.0); Chloride 107 mmol/L (98-107); Estimated GFR (African America >60 (>=60 mL/min/1.73m^2); Estimated GFR (Non-African Ame >60 (>=60 mL/min/1.73m^2); Globulin 2.8 g/dL; Glucose 96 mg/dL (74-106); Potassium 4.2 mmol/L (3.5-5.1); Sodium 145 mmol/L (136-145); Total Protein 7.3 g/dL (6.4-8.2)
[2025-02-15 16:39] LABS: Lactate/Lactic Acid 0.7 mmol/L (0.4-2.0)
[2025-02-15 17:00] VITALS: BP 130/84; PULSE 66
== END 2025-02-15 17:30 | disposition home or self-care (01) ==
PROVIDERS: Physician Assistant; Emergency Provider Emergency Medicine; PCP Family Medicine
DX: R10.9 Unspecified abdominal pain (principal); K58.0 Irritable bowel syndrome with diarrhea
CPT/HCPCS: 36415; 74177; 80053; 81001; 83605; 83690; 85025; 85610; 96361; 96374; 96375; 99285; J1885; J2405; Q9967